=== PATIENT | male | born 1935 | race Hispanic/Latino ===

== ENCOUNTER 2017-07-01 10:41 | Emergency (ER) | payer MEDICARE, OTHER ==
[2017-07-01 11:27] LABS: BASOPHILS % (AUTO) 0.5 % (0.0-5.0); EOSINOPHILS % (AUTO) 0.4 % (0.0-8.0); HEMATOCRIT 40.7 % (42-54); LYMPHOCYTES % (AUTO) 10.1 % (21.0-51.0); MEAN CORPUSCULAR HEMOGLOBIN 27.5 pg (27.0-33.0); MEAN CORPUSCULAR HGB CONC 33.9 g/dL (32.0-36.0); MEAN CORPUSCULAR VOLUME 81.2 fL (79-99); MONOCYTES % (AUTO) 5.3 % (3.0-13.0); NEUTROPHILS % (AUTO) 83.7 % (40.0-77.0); PLATELET COUNT (AUTO) 231 K/uL (130-400); RED BLOOD CELL COUNT(AUTO) 5.01 MIL/uL (4.50-6.20); RED CELL DISTRIBUTION WIDTH 15.2 % (11.0-15.5); WHITE BLOOD COUNT (AUTO) 7.3 K/uL (4.8-10.8)
[2017-07-01 11:43] LABS: CARBON DIOXIDE 30 mmol/L (21-32); CHLORIDE 101 mmol/L (101-111); GLOMERULAR FILTR. RATE CALC 76 mL/min (>60); GLUCOSE,RANDOM 132 mg/dL (70-105); POTASSIUM 4.2 mmol/L (3.5-5.1); SODIUM SERUM 137 mmol/L (136-145); UREA NITROGEN, BLOOD 18 mg/dL (7-18)
[2017-07-01 11:56] LABS: ALANINE AMINOTRANSFERASE 7 U/L (12-78); ALBUMIN 3.7 g/dL (3.5-5.0); ASPARTATE AMINOTRANSFERASE 12 U/L (10-37); BILIRUBIN,TOTAL 0.7 mg/dL (0.2-1.0); CREATINE KINASE MB < 0.5 ng/mL (0.5-3.6); CREATINE KINASE, TOTAL 58 U/L (21-232); TOTAL PROTEIN, SERUM 6.5 g/dL (6.0-8.3)
[2017-07-01] MEDS ORDERED: ONDANSETRON HCL 4 MG/2 ML VIAL IV PRN (14:30)
[2017-07-01] MEDS ORDERED: LACTULOSE 20 GM/30 ML UDCUP PO PRN (14:30)
[2017-07-01] MEDS ORDERED: MAG HYDROX/AL HYDROX/SIMETH ES 30 ML SUSP UDCUP PO PRN (14:30)
[2017-07-01] MEDS ORDERED: ACETAMINOPHEN 325 MG TAB PO PRN ×2 (14:30)
[2017-07-01] MEDS ORDERED: GUAIFENESIN-DM 200/20 MG 10 ML PO PRN (14:30)
[2017-07-01] MEDS ORDERED: FAMOTIDINE/PF 20 MG/2 ML VIAL IV SCH (21:00)
== END 2017-07-01 15:16 | disposition home or self-care (01) ==
LOC: EDH 10:41
DX: R55 Syncope and collapse (principal); G20 Parkinson's disease; R60.0 Localized edema
CPT/HCPCS: 36415; 70450; 71045; 80053; 82550; 82553; 83880; 84484; 85025; 87804; 93005

== ENCOUNTER 2017-07-09 09:41 | Emergency (ER) | payer OTHER ==
[2017-07-09] MEDS ORDERED: SODIUM CHLORIDE 0.9% 1000ML 1,000 ML IV ONE (10:04)
[2017-07-09] MEDS ORDERED: ONDANSETRON HCL 4 MG/2 ML VIAL ONE (10:04)
[2017-07-09] MEDS ORDERED: FAMOTIDINE/PF 20 MG/2 ML VIAL IV ONE (10:04)
[2017-07-09 10:15] LABS: BASOPHILS % (AUTO) 0.7 % (0.0-5.0); EOSINOPHILS % (AUTO) 0.2 % (0.0-8.0); HEMATOCRIT 40.4 % (42-54); LYMPHOCYTES % (AUTO) 9.6 % (21.0-51.0); MEAN CORPUSCULAR HEMOGLOBIN 27.9 pg (27.0-33.0); MEAN CORPUSCULAR HGB CONC 34.6 g/dL (32.0-36.0); MEAN CORPUSCULAR VOLUME 80.6 fL (79-99); MONOCYTES % (AUTO) 5.6 % (3.0-13.0); NEUTROPHILS % (AUTO) 83.9 % (40.0-77.0); PLATELET COUNT (AUTO) 222 K/uL (130-400); RED BLOOD CELL COUNT(AUTO) 5.01 MIL/uL (4.50-6.20); RED CELL DISTRIBUTION WIDTH 14.8 % (11.0-15.5); WHITE BLOOD COUNT (AUTO) 7.7 K/uL (4.8-10.8)
[2017-07-09 10:27] LABS: CREATININE 0.9 mg/dL (0.5-1.5); POTASSIUM 4.1 mmol/L (3.5-5.1)
[2017-07-09 10:32] LABS: INR 1.02 (0.85-1.15); PARTIAL THROMBOPLASTIN TIME 27.1 SEC (26.3-35.5); PROTHROMBIN TIME 10.7 SEC (9.6-11.6)
[2017-07-09 10:35] LABS: APPEARANCE,URINE Clear (CLEAR); BILIRUBIN,URINE Negative (NEGATIVE); COLOR,URINE Yellow (YELLOW); GLUCOSE, URINE (UA) Negative (NEGATIVE); KETONES,URINE Trace mg/dL (NEGATIVE); LEUKOCYTE ESTERASE ,URINE Negative (NEGATIVE); NITRATE,URINE Negative (NEGATIVE); OCCULT BLOOD,URINE Negative (NEGATIVE); PROTEIN,URINE Negative (NEGATIVE)
[2017-07-09 10:41] LABS: ALBUMIN 3.7 g/dL (3.5-5.0); BILIRUBIN,TOTAL 0.6 mg/dL (0.2-1.0); CREATINE KINASE MB 0.8 ng/mL (0.5-3.6); TOTAL PROTEIN, SERUM 7.1 g/dL (6.0-8.3)
[2017-07-09 10:42] LABS: BACTERIA,URINE Rare /HPF (None Seen); RBC,URINE 0-1 /HPF (0-1); SQUAMOUS EPITHELIAL CELL,UR Rare /LPF (0-2); WBC,URINE 0-1 /HPF (0-1)
[2017-07-09] MEDS ORDERED: IOPAMIDOL-370 75 ML VIAL IV ONE (11:42)
[2017-07-09] MEDS ORDERED: NITROGLYCERIN 1GM/1 INCH PACKET TD ONE (12:40)
== END 2017-07-09 15:03 | disposition home or self-care (01) ==
LOC: EDH 09:41
DX: K44.9 Diaphragmatic hernia without obstruction or gangrene (principal); R10.13 Epigastric pain; G20 Parkinson's disease; Z87.891 Personal history of nicotine dependence
CPT/HCPCS: 36415; 74177; 80053; 81001; 82550; 82553; 83690; 84484 ×2; 85025; 85610; 85730; 93005 ×2; 96361; 96374; 96375; 99285; J2405; J3490; J7030; Q9967

== ENCOUNTER 2019-03-25 17:36 | Emergency (ER) | payer OTHER | END 2019-03-25 20:01 | disposition home or self-care (01) | LOC: EDH 17:36 | DX: M17.12 Unilateral primary osteoarthritis, left knee (principal); G20 Parkinson's disease; Z87.891 Personal history of nicotine dependence | CPT/HCPCS: 73562; 93971 ==

== ENCOUNTER 2020-10-10 17:34 | Emergency (ER) | payer MEDICARE, OTHER ==
[2020-10-10 18:17] LABS: BASOPHILS % (AUTO) 0.4 % (0.0-5.0); EOSINOPHILS % (AUTO) 0.9 % (0.0-8.0); HEMATOCRIT 38.6 % (42-54); MEAN CORPUSCULAR HEMOGLOBIN 25.6 pg (27.0-33.0); MEAN CORPUSCULAR HGB CONC 31.6 g/dL (32.0-36.0); MEAN CORPUSCULAR VOLUME 81.1 fL (79-99); NEUTROPHILS % (AUTO) 72.3 % (40.0-77.0); PLATELET COUNT (AUTO) 221 K/uL (130-400); RED BLOOD CELL COUNT(AUTO) 4.76 MIL/uL (4.50-6.20); RED CELL DISTRIBUTION WIDTH 14.5 % (11.0-15.5); WHITE BLOOD COUNT (AUTO) 6.9 K/uL (4.8-10.8)
[2020-10-10] MEDS ORDERED: SODIUM CHLORIDE 0.9% 1000ML 1,000 ML IV ONE ×2 (18:24→21:42)
[2020-10-10 18:25] LABS: CREATININE 1.3 mg/dL (0.5-1.5); POTASSIUM 3.8 mmol/L (3.5-5.1)
[2020-10-10 18:37] LABS: ALBUMIN 3.6 g/dL (3.5-5.0); BILIRUBIN,TOTAL 0.6 mg/dL (0.2-1.0); MAGNESIUM 2.1 mg/dL (1.80-2.40); PHOSPHORUS 2.6 mg/dL (2.5-4.9); TOTAL PROTEIN, SERUM 6.9 g/dL (6.0-8.3)
[2020-10-10 18:38] LABS: B-TYPE NATRIURETIC PEPTIDE 60 pg/mL (0-100)
[2020-10-10 21:47] LABS: APPEARANCE,URINE Clear (CLEAR); BILIRUBIN,URINE Negative (NEGATIVE); COLOR,URINE Yellow (YELLOW); GLUCOSE, URINE (UA) Negative (NEGATIVE); KETONES,URINE Trace mg/dL (NEGATIVE); LEUKOCYTE ESTERASE ,URINE Negative (NEGATIVE); NITRATE,URINE Negative (NEGATIVE); OCCULT BLOOD,URINE Negative (NEGATIVE); PH,URINE 6.5 (5.0-8.0); PROTEIN,URINE Negative (NEGATIVE)
== END 2020-10-10 23:24 | disposition home or self-care (01) ==
LOC: EDH 17:34
DX: E86.0 Dehydration (principal); R53.1 Weakness; Z87.891 Personal history of nicotine dependence; Z98.890 Other specified postprocedural states
CPT/HCPCS: 36415; 70450; 71045; 74176; 80053; 81003; 83690; 83735; 83880; 84100; 84484; 85025; 93005; 96360; 96361; 99285; J7030 ×2

== ENCOUNTER 2024-12-21 23:56 | Emergency (ER) | payer MEDICARE, OTHER ==
[~2024-12-21] VITALS: Ht 175.3 cm; Wt 63.5 kg
[2024-12-22 00:46] LABS: APPEARANCE,URINE CLEAR (CLEAR); GLUCOSE, URINE (UA) NEGATIVE (NEGATIVE); LEUKOCYTE ESTERASE ,URINE NEGATIVE Leu/uL (NEGATIVE); NITRATE,URINE NEGATIVE (NEGATIVE); OCCULT BLOOD,URINE SMALL (NEGATIVE)
[2024-12-22 00:48] LABS: ADD UA MICROSCOPIC YES
[2024-12-22 00:51] LABS: SQUAMOUS EPITHELIAL CELL,UR RARE /HPF (0-2)
[2024-12-22 01:21] LABS: IMMATURE GRANULOCYTE ABSOLUTE 0.03 K/uL (0-1); NUCLEATED RED BLOOD CELLS 0.0 % (0.0-0.19); PLATELET COUNT (AUTO) 195 K/uL (130-400); RED BLOOD CELL COUNT(AUTO) 4.40 MIL/uL (4.50-6.20); RED CELL DISTRIBUTION WIDTH 14.5 % (11.0-15.5); WHITE BLOOD COUNT (AUTO) 7.4 K/uL (4.8-10.8)
--- NOTE | 2024-12-22 01:22 | ERN ---
General Chief Complaint: Mechanical Fall Stated Complaint: FALL FROM STANDING -LOC, -ANTICOAGULANT USE Time Seen by MD: 00:49 Source: family History of Present Illness Initial Comments Patient is an 89-year-old male with severe Parkinson's dementia. He insists on going to the bathroom rather than using a diaper and is very unsteady on his feet. He was in the bathroom today when he fell. He did hit his head but there was no loss of consciousness. There was no bruising on his head. He does not take blood thinners. Patient brought here as a rule out trauma patient Past Medical History Past Medical History: Dementia Medical History Other: BPH, PARKINSON'S Past Surgical History: Unknown ROS Dictation Unable to obtain a review of systems. Physical Exam General Appearance: (+) mild distress Orientation: (+) disoriented Head/Face Trauma: No Eye: bilateral eye normal inspection, bilateral eye PERRL, bilateral eye EOMI Ear, Nose, Throat: (+) normal ENT inspection Neck: (+) normal inspection, (+) supple, (+) full range of motion, (+) non- tender Neck Comment Patient had no C-spine tenderness or paraspinal muscle neck tenderness. Respiratory: (+) chest non-tender, (+) lungs clear, (+) well ventilated Heart: (+) regular, (+) no gallop Vascular: (+) no edema, (+) normal peripheral pulse, (+) no JVD Gastrointestinal: (+) soft, (+) non-tender, (+) bowel sound present Extremities: (+) normal range of motion Results Laboratory and Microbiology Lab and Micro Result Laboratory Tests Test 12/22/24 00:33 12/22/24 01:05 Urine Color LIGHT-YELLOW (YELLOW) Urine Appearance CLEAR (CLEAR) Urine pH 6.0 (5.0-8.0) Urine Specific [place] 1.019 (1.001-1.031) Urine Protein NEGATIVE mg/dL (NEGATIVE) Urine Glucose (UA) NEGATIVE mg/dL (NEGATIVE) Urine Ketones NEGATIVE mg/dL (NEGATIVE) Urine Occult Blood SMALL (NEGATIVE) H Urine Nitrate NEGATIVE (NEGATIVE) Urine Bilirubin NEGATIVE mg/dL (NEGATIVE) Urine Urobilinogen 0.2 mg/dL (0.2-1.0) Urine Leukocyte Esterase NEGATIVE Gale/uL Urine RBC 6-10 /HPF (0-1) H Urine WBC 0-1 /HPF (0-1) Urine Squamous Epithelial Cells RARE /HPF (0-2) Urine Bacteria None /HPF (None Seen) White Blood Count 7.4 K/uL (4.8-10.8) Red Blood Count 4.40 MIL/uL (4.50-6.20) L Hemoglobin 11.8 g/dL (14.0-18.0) L Hematocrit 36.7 % (42-54) L Mean Corpuscular Volume 83.4 fL (79-99) Mean Corpuscular Hemoglobin 26.8 pg (27.0-33.0) L Mean Corpuscular Hemoglobin Concent 32.2 g/dL (32.0-36.0) Red Cell Distribution Width 14.5 % (11.0-15.5) Platelet Count 195 K/uL (130-400) Mean Platelet Volume 9.5 fL (7.5-10.5) Immature Granulocyte % (Auto) 0.4 % (0-1) Neutrophils (%) (Auto) 75.9 % (40.0-77.0) Lymphocytes (%) (Auto) 12.3 % (21.0-51.0) L Monocytes (%) (Auto) 9.6 % (3.0-13.0) Eosinophils (%) (Auto) 1.4 % (0.0-8.0) Basophils (%) (Auto) 0.4 % (0.0-5.0) Neutrophils # (Auto) 5.6 K/uL (1.8-7.7) Lymphocytes # (Auto) 0.9 K/uL (1.0-4.8) L Monocytes # (Auto) 0.7 K/uL (0.1-1.0) Eosinophils # (Auto) 0.10 K/uL (0.00-0.70) Basophils # (Auto) 0.03 K/uL (0.00-0.20) Absolute Immature Granulocyte (auto 0.03 K/uL (0-1) Nucleated Red Blood Cells 0.0 % (0.0-0.19) Sodium Level 140 mmol/L (136-145) Potassium Level 3.9 mmol/L (3.5-5.1) Chloride Level 106 mmol/L (101-111) Carbon Dioxide Level 29 mmol/L (21-32) Blood Urea Nitrogen 33 mg/dL (7-18) H Creatinine 1.2 mg/dL (0.5-1.3) Glomerular Filtration Rate Calc 59 mL/min (>90) Random Glucose 106 mg/dL (70-105) H Total Calcium 8.8 mg/dL (8.5-10.1) Total Bilirubin 0.4 mg/dL (0.2-1.0) Aspartate Amino Transf (AST/SGOT) 21 U/L (10-37) Alanine Aminotransferase (ALT/SGPT) 7 U/L (12-78) L Alkaline Phosphatase 68 U/L (50-136) Total Protein 6.3 g/dL (6.0-8.3) Albumin 3.2 g/dL (3.5-5.0) L MDM In the absence of blood thinners patient is a low risk for intracerebral hemorrhage. I will get a CT scan to be sure. Patient has no C-spine tenderness. He moves all his extremities. I will not get a C-spine x-ray or CT scan. We will check his chemistry panel CBC and urine to be sure there was not some acute reason for his fall. Patient's CT head is negative for an acute bleed or any other acute process. Bilateral hygromas confirmed. Patient's chemistry CBC and urine are also unremarkable. I will discharge the patient home. ED Course Orders Procedure Category Date Status Time Cbc With Differential LAB 12/22/24 Complete 00:28 Comprehensive LAB 12/22/24 Complete Metabolic Panel 00:28 Urinalysis Profile LAB 12/22/24 Complete 00:28 Ct Head/Brain W/O CT 12/22/24 Resulted Contrast 00:28 Vital Signs Date Time Temp Pulse Resp B/P (MAP) Pulse Ox O2 Delivery O2 Flow Rate FiO2 12/22/24 00:19 97.3 100 24 141/63 97 Room Air* 0 21 12/21/24 23:57 98.6 76 20 145/56 95 Room Air 0 DX & DISP Disposition: Discharge Departure Impression: Primary Impression: Fall from standing Condition: Stable Additional Instructions: Are scans today do not show any signs of bleeding inside the patient's head. Please return to the emergency room if the patient has more neurologic symptoms such as paralysis or seizures or decreased level of consciousness. Referrals: ONOFRE CONWAY MD (PCP) DIANNE LUCAS MD Dec 22, 2024 01:22
--- NOTE | 2024-12-22 01:26 | HMCIMG ---
EXAM: Non-contrast CT examination of the Brain. CLINICAL HISTORY: Status post fall. TECHNIQUE: Thin collimated axial CT images of the brain were obtained, with sagittal and coronal reformatted images also submitted. CT scan done according to ALARA (As Low as Reasonably Achievable). CONTRAST USED: None. COMPARISON: Prior CT brain dated 10/10/20. FINDINGS: No acute intracranial abnormality is present. No acute cortical infarction, hemorrhage, mass, or mass effect. Subdural hygroma along the left cerebral convexity, measuring up to 1.6 cm in width along the left parietal region. Subdural hygroma along the right fronto-parietal region extending along the falx. A 6 mm midline shift to the right side. Age-related generalized cerebral atrophy. No hydrocephalus. The posterior fossa is unremarkable. The skull base and calvarium are intact. The included portions of the paranasal sinuses and mastoid air cells are clear. IMPRESSION: No acute intracranial abnormality is present. Bilateral stable subdural hygromas, more pronounced on the left side. Stable mild midline shift to the right side. No significant interval change. /[place]
[2024-12-22 01:28] LABS: CREATININE 1.2 mg/dL (0.5-1.3); GLOMERULAR FILTR. RATE CALC 59.0 mL/min (>90); GLUCOSE,RANDOM 106.0 mg/dL (70-105); SODIUM SERUM 140.0 mmol/L (136-145); UREA NITROGEN, BLOOD 33.0 mg/dL (7-18)
[2024-12-22 01:33] LABS: ASPARTATE AMINOTRANSFERASE 21.0 U/L (10-37); TOTAL PROTEIN, SERUM 6.3 g/dL (6.0-8.3)
[2024-12-22 02:44] VITALS: BP 156/76; PULSE 67; RESP 24; TEMP 97.4; O2SAT 97
== END 2024-12-22 03:04 | disposition home or self-care (01) ==
LOC: EDH 23:56
DX: G96.00 Cerebrospinal fluid leak, unspecified (principal); W18.39XA Other fall on same level, initial encounter; Y93.89 Activity, other specified; Y92.89 Other specified places as the place of occurrence of the external cause; Y99.8 Other external cause status
CPT/HCPCS: 36415; 70450; 80053; 81001; 85025; 96374; 99284